=== PATIENT | male | born 1955 | race Two or more races ===

== ENCOUNTER 2025-01-28 21:31 | Inpatient (IN) | payer MEDICARE, OTHER ==
[~2025-01-28] VITALS: Ht 180.3 cm; Wt 122.9 kg
[2025-01-28 22:05] LABS: PLATELET COUNT (AUTO) 321 K/uL (150-450); RED BLOOD CELL COUNT(AUTO) 5.33 MIL/uL (4.5-6.0); RED CELL DISTRIBUTION WIDTH 19.6 % (11.5-15.0); WHITE BLOOD COUNT (AUTO) 8.3 K/uL (4.3-11.0)
[2025-01-28] MEDS: IV NS 0.9% 500 ML BAG IV ONE ×2 (22:05→23:38)
[2025-01-28 22:24] LABS: CALCIUM, SERUM 7.7 mg/dL (8.5-10.1); CREATININE 1.5 mg/dL (0.6-1.3); SODIUM SERUM 141 mmol/L (136-145); UREA NITROGEN, BLOOD 26 mg/dL (7-18)
[2025-01-28 22:29] LABS: PHOSPHORUS 4.2 mg/dL (2.5-4.9)
[2025-01-28] MEDS ORDERED: ASPIRIN 325 MG TABLET ONE ×2 (22:45→22:48)
[2025-01-28] MEDS: ASPIRIN 325 MG TABLET PO ONE (22:49)
[2025-01-29] MEDS ORDERED: ONDANSETRON HCL/PF 4 MG/2 ML VIAL IVP PRN (02:00)
[2025-01-29] MEDS ORDERED: ACETAMINOPHEN 325 MG TABLET PO PRN (02:00)
[2025-01-29] MEDS ORDERED: MAG HYDROX/AL HYDROX/SIMETH 30 ML UDC PO PRN (02:00)
[2025-01-29 02:20] VITALS: BP 142/74; TEMP 97.5; O2SAT 99
[2025-01-29 02:23] VITALS: BP_SYST 132; BP_SYST 134; BP_SYST 142; BP_DIAS 67; BP_DIAS 74; BP_DIAS 75; TEMP 97.5; O2SAT 91
[2025-01-29] MEDS: ENOXAPARIN SODIUM 40 MG/0.4 ML DISP.SYRIN SQ SCH (03:04)
[2025-01-29] MEDS: IV NS 0.9% 1,000 ML IV PRN (04:01)
[2025-01-29 07:00] VITALS: BP 141/66; TEMP 97.7; O2SAT 98
[2025-01-29] MEDS ORDERED: TROS20TA3 PO (09:18)
[2025-01-29] MEDS ORDERED: INSU500I SQ (09:18)
[2025-01-29] MEDS ORDERED: PANT40TA49 PO (09:18)
[2025-01-29] MEDS ORDERED: ATOR40TA PO (09:18)
[2025-01-29] MEDS ORDERED: MECL-159 PO (09:18)
[2025-01-29] MEDS ORDERED: NITR0.4T48 SL (09:18)
[2025-01-29] MEDS ORDERED: GABA600T12 PO ×2 (09:18)
[2025-01-29] MEDS ORDERED: METO25TA20 PO (09:18)
[2025-01-29] MEDS ORDERED: EMPA25TA PO (09:18)
[2025-01-29] MEDS ORDERED: LISI10TA29 PO (09:18)
[2025-01-29] MEDS ORDERED: SITA50TA PO (09:18)
[2025-01-29] MEDS ORDERED: DULO20CA PO (09:18)
[2025-01-29] MEDS ORDERED: ALBU6.7H9 IH (09:18)
[2025-01-29] MEDS ORDERED: FURO40TA5 PO (09:18)
[2025-01-29] MEDS ORDERED: MIRABEGRON PO (09:18)
[2025-01-29] MEDS ORDERED: METF-440 PO ×2 (09:18)
[2025-01-29] MEDS ORDERED: ARIP2TAB3 PO (09:18)
[2025-01-29 09:38] LABS: LDL 36 mg/dL (0-99)
[2025-01-29] MEDS: ATORVASTATIN 40 MG TABLET PO SCH (09:48)
[2025-01-29 11:00] VITALS: BP 137/66; TEMP 97.7; O2SAT 96
[2025-01-29 15:00] VITALS: BP 142/77; TEMP 97.7; O2SAT 95
[2025-01-29] MEDS ORDERED: INSULIN REGULAR, HUMAN 100 UNIT/ML 3 ML VIAL SQ PRN (15:30)
[2025-01-29] MEDS ORDERED: DEXTROSE 50%-WATER 50 ML DISP.SYRIN IV PRN (15:30)
[2025-01-29] MEDS ORDERED: ALBUTEROL FS 2.5 MG/0.5 ML VIAL.NEB NEB PRN (15:30)
[2025-01-29] MEDS ORDERED: NITROGLYCERIN 0.4 MG/TAB BOTTLE SL PRN (15:30)
[2025-01-29] MEDS ORDERED: MECLIZINE HCL 25 MG TABLET PO PRN (15:30)
[2025-01-29] MEDS ORDERED: GABAPENTIN 300 MG CAPSULE PO SCH ×2 (17:00→22:00)
[2025-01-29] MEDS ORDERED: BLOOD SUGAR DIAGNOSTIC 1 EACH STRIP IN SCH (17:30)
[2025-01-29] MEDS ORDERED: METFORMIN 500 MG TABLET PO SCH (21:00)
[2025-01-30] MEDS ORDERED: PANTOPRAZOLE 40 MG TABLET.DR PO SCH (09:00)
[2025-01-30] MEDS ORDERED: ATORVASTATIN 40 MG TABLET PO SCH (09:00)
[2025-01-30] MEDS ORDERED: EMPAGLIFLOZIN 25 MG TABLET PO SCH (09:00)
[2025-01-30] MEDS ORDERED: ARIPIPRAZOLE 2 MG TABLET PO SCH (09:00)
[2025-01-30] MEDS ORDERED: DULOXETINE HCL 20 MG CAPSULE.DR PO SCH (09:00)
[2025-01-30] MEDS ORDERED: LINAGLIPTIN 5 MG TABLET PO SCH (09:00)
[2025-01-30] MEDS ORDERED: METFORMIN 500 MG TABLET PO SCH (13:00)
== END 2025-01-29 16:10 | disposition left against medical advice (07) | DRG 682 ==
LOC: ER 21:37 → TELE 01-29 01:18
DX: N17.9 Acute kidney failure, unspecified (principal); I21.4 Non-ST elevation (NSTEMI) myocardial infarction; E03.9 Hypothyroidism, unspecified; E11.9 Type 2 diabetes mellitus without complications; D50.9 Iron deficiency anemia, unspecified; E66.01 Morbid (severe) obesity due to excess calories; I10 Essential (primary) hypertension; J44.9 Chronic obstructive pulmonary disease, unspecified; Z88.0 Allergy status to penicillin; E78.5 Hyperlipidemia, unspecified; G47.33 Obstructive sleep apnea (adult) (pediatric); Z87.891 Personal history of nicotine dependence; R29.6 Repeated falls; Z79.84 Long term (current) use of oral hypoglycemic drugs; Z79.51 Long term (current) use of inhaled steroids; Z79.4 Long term (current) use of insulin; Z79.899 Other long term (current) drug therapy; Z68.37 Body mass index [BMI] 37.0-37.9, adult
CPT/HCPCS: 36415; 70450-TC; 71045-TC; 80048-TC; 80061-TC; 82962-TC; 83735-TC; 84100-TC; 84439-TC; 84443-TC; 84484-TC; 85025-TC; 93307-TC; A4223; G0378; J1815; J7030; J7040